=== PATIENT | male | born 2000 | race Caucasian/White ===

== ENCOUNTER → 2020-10-01 08:36 | Outpatient (BNVA) | payer OTHER, SELFPAY | PROVIDERS: Family Provider Psychiatry & Neurology Neurology; Visit Provider Psychiatry & Neurology Psychiatry | DX: Z03.89 Encounter for observation for other suspected diseases and conditions ruled out (principal); Z79.899 Other long term (current) drug therapy; F90.2 Attention-deficit hyperactivity disorder, combined type; F90.9 Attention-deficit hyperactivity disorder, unspecified type; R45.86 Emotional lability; F10.10 Alcohol abuse, uncomplicated; F12.10 Cannabis abuse, uncomplicated; F17.200 Nicotine dependence, unspecified, uncomplicated | CPT/HCPCS: 80048; 80061; 83036; 84443; 85025 ==